=== PATIENT | male | born 1950 | race Caucasian/White ===

== ENCOUNTER 2017-11-15 20:30 | Outpatient (CLI) | payer MEDICARE, BC | END 2017-11-15 20:31 | disposition home or self-care (01) | LOC: SLEEPLAB 20:30 | PROVIDERS: ATTEND Family Medicine | DX: G47.33 Obstructive sleep apnea (adult) (pediatric) (principal); E66.9 Obesity, unspecified; J44.9 Chronic obstructive pulmonary disease, unspecified; I10 Essential (primary) hypertension; E11.9 Type 2 diabetes mellitus without complications; G47.61 Periodic limb movement disorder; Z68.35 Body mass index [BMI] 35.0-35.9, adult | CPT/HCPCS: 95811 ==

== ENCOUNTER 2017-12-10 08:05 | Outpatient (CLI) | payer MEDICARE, BC ==
--- NOTE | 2017-12-10 13:38 | ULT ---
ULTRASOUND ABDOMINAL AORTA: Date: 12/10/17 HISTORY: Abdominal aortic aneurysm screening. FINDINGS: The abdominal aorta is visualized and is normal in caliber. Proximal abdominal aorta measures 2.0 cm in greatest dimensions, mid abdominal aorta measures 2.1 cm in maximum dimension, and distal abdomina l aorta measures 2.3 cm in maximal dimension. Doppler evaluation and spectral analysis of the abdomin al aorta does demonstrate flow within the abdominal aorta. The iliac arteries are not well visualized bilaterally on Ventura scale imaging, but each common iliac a rtery does appear mildly ectatic. Doppler evaluation of the visualized proximal common iliac arteries also demonstrates arterial waveforms. IMPRESSION: No evidence of an abdominal aortic aneurysm. No periaortic fluid collection is seen on this exam. POS: [facility]
== END 2017-12-10 08:06 | disposition home or self-care (01) ==
LOC: SCSULT 08:05
PROVIDERS: ATTEND Family Medicine
DX: Z13.6 Encounter for screening for cardiovascular disorders (principal); Z00.00 Encounter for general adult medical examination without abnormal findings
CPT/HCPCS: 76706

== ENCOUNTER 2018-01-31 07:20 | Outpatient (CLI) | payer MEDICARE, BC ==
--- NOTE | 2018-01-31 15:46 | CT ---
CT OF CHEST PERFORMED WITH INTRAVENOUS CONTRAST ENHANCEMENT CT OF ABDOMEN AND PELVIS PERFORMED WITH INTRAVENOUS CONTRAST ENHANCEMENT 01/31/18 HISTORY: Mediastinal adenopathy noted on previous CT examination done in [place]. Those previous exam are not available for comparison. The lungs are clear of any infiltrative process. Minimal subpleural atelectatic changes in the lung b ases. I do not visualize any pulmonary nodules. There is no significant axillary adenopathy. There is some mildly prominent prevascular lymph nodes just in the region of the aorticopulmonary window. Largest of these measures 10 mm in short axis dime nsion. There is a right paratracheal node which measures 1.4 cm in short axis dimension. There is sma ll subcarinal node located at the azygoesophageal recess region. It measures 1.5 cm in short axis dim ension. Subcentimeter hilar lymph nodes are seen. CT OF ABDOMEN PERFORMED WITH CONTRAST ENHANCEMENT: The liver, spleen, pancreas and gallbladder regions appear unremarkable. The spleen measures 13 cm in length but does not appear enlarged. There is more of a thin elongated appearance to the spleen. Right and left adrenal glands are normal in appearance. Bilateral renal cysts are noted. No suspiciou s solid mass. The larger cyst is involving the left kidney. It measures 4.2 cm. There is no significa nt periaortic or mesenteric lymphadenopathy. I do not appreciate any significant adenopathy in the ga strohepatic ligament or john region. Mild amount of stool throughout the colon. No signs of any mas ses. CT OF THE PELVIS PERFORMED WITH CONTRAST ENHANCEMENT: Prostate does not appear enlarged. I do not appreciate any significant pelvic lymphadenopathy or mass . Review of osseous structures show arthritic change of the spine. No lytic or blastic bony changes. IMPRESSION: 1. Some mild nonspecific mediastinal adenopathy. 2. Bilateral renal cysts. POS: [facility]
== END 2018-01-31 07:21 | disposition home or self-care (01) ==
LOC: SCSCT 07:20
PROVIDERS: ATTEND Internal Medicine Hematology & Oncology
DX: R59.0 Localized enlarged lymph nodes (principal); D72.829 Elevated white blood cell count, unspecified; N28.1 Cyst of kidney, acquired
CPT/HCPCS: 71260; 74177; 82565

== ENCOUNTER 2019-02-03 08:21 | Outpatient (CLI) | payer MEDICARE, BC ==
[2019-02-03] MEDS ORDERED: Iopamidol 370 76% 100 ML VIAL ONE (09:00)
[2019-02-03 09:57] LABS: ALT (SGPT) 25 U/L (8-55); AST (SGOT) 23 U/L (5-34); Albumin 4.4 g/dL (3.4-4.8); Alkaline Phosphatase 114 U/L (40-110); Anion Gap 15 mmol/L (10-20); BUN (Urea Nitrogen) 16 mg/dL (8.4-25.7); Bilirubin, Total 0.6 mg/dL (0.2-1.2); Calc. Creatinine Clearance 0 mL/min (70-130); Calcium 9.4 mg/dL (7.8-10.44); Carbon Dioxide 27 mmol/L (23-31); Cardiac Risk 4.3 (Less than 4.5); Chloride 103 mmol/L (98-107); Cholesterol 195 mg/dl (< 200 Desired); Estimated GFR-MDRD 59; Globulin 3.2 g/dL (2.4-3.5); Glucose 120 mg/dL (80-115); HDL Cholesterol 45 mg/dL (>60 Neg Risk); LDL Cholesterol, Calculated 132 mg/dL; Potassium 4.7 mmol/L (3.5-5.1); Protein, Total 7.6 g/dL (5.8-8.1); Sodium 140 mmol/L (136-145); Triglycerides 92 mg/dL (Less than 150)
--- NOTE | 2019-02-03 11:03 | CT ---
CT CHEST AND ABDOMEN AND PELVIS PERFORMED WITH INTRAVENOUS CONTRAST ENHANCEMENT: HISTORY: Follow up of lymphadenopathy. COMPARISON: 01/31/2018 FINDINGS: CHEST: The lungs are clear of any infiltrative process. There are no pulmonary nodules or pleural eff usions. The thyroid gland is normal in appearance. Small mediastinal lymph nodes are again noted. The largest right paratracheal node is approximately 11 to 12 mm, as compared to 14 mm on the prior exam, and a prevascular node located near the aorticopulmonary window measures 11 mm in size on today's study, wh ich is a similar measurement to that obtained on the prior study. No new lymph nodes are identified. There is no significant axillary adenopathy. ABDOMEN: The liver and spleen as well as pancreas and gallbladder regions appear unremarkable. The right and left adrenal glands and the right and left kidneys are normal in size. Bilateral renal cysts are again demonstrated, stable. There is no significant periaortic or mesenteric adenopathy. PELVIS: Some minimal diverticulosis change. There is no evidence of any significant adenopathy or mas s. Review of osseous structures show arthritic changes of the spine and hips. No lytic or blastic bon y change. Subchondral cystic change involving the left acetabulum is stable and compatible with arthr itic disease. IMPRESSION: 1. Stable overall examination. 2. Small mediastinal nodes, nonspecific. No change in size since the prior examination. 3. Renal cysts. POS: [facility]
[2019-02-03 11:59] LABS: Creatinine, Urine 129.63 mg/dL (63-166); Microalbumin Urine Less than 1.0 mg/dL (0.5-50.0)
[2019-02-03 12:16] LABS: Hemoglobin A1c 5.9 % (4.0-6.0)
== END 2019-02-03 08:22 | disposition home or self-care (01) ==
LOC: SCSCT 08:21
PROVIDERS: ATTEND Internal Medicine Hematology & Oncology
DX: E11.9 Type 2 diabetes mellitus without complications (principal); E55.9 Vitamin D deficiency, unspecified; R59.0 Localized enlarged lymph nodes; N28.1 Cyst of kidney, acquired
CPT/HCPCS: 36415; 71260; 74177; 80053; 80061; 82043; 82306; 83036; Q9967